=== PATIENT | female | born 1960 | race Caucasian/White ===

== ENCOUNTER 2017-02-21 05:33 | Day surgery (SDC) | payer BC ==
[2017-02-20 12:04] LABS: BASOPHILS 0.3 % (0-2); EOSINOPHILS 0.2 % (0-7); HEMATOCRIT 44.5 % (36.0-48.0); HEMOGLOBIN 14.9 g/dL (12-16); IMMATURE GRANULOCYTES 0.2 % (0-5); LYMPHOCYTES 16.7 % (15-50); MCH 31.2 pg (26.0-34.0); MCHC 33.5 g/dL (31.0-37.0); MCV 93.1 fL (80.0-100.0); MEAN PLATELET VOLUME 10.7 fL (7.4-10.4); NEUTROPHILS 75.6 % (40-80); PLATELET COUNT 235 10x3/uL (130-400); RBC 4.78 10x6/uL (4.00-5.40)
[2017-02-20 12:19] LABS: APTT 28.4 SECONDS (22.8-39.4); INR 0.96 (0.85-1.17); PROTIME 12.6 SECONDS (11.6-15.0)
[2017-02-20 12:23] LABS: CALC OSMOLALITY 275 mosm/kg (275-300); CALCIUM 9.7 mg/dL (8.5-10.1); CARBON DIOXIDE 27.8 mmol/L (21.0-32.0); CHLORIDE - SERUM 103 mmol/L (98-107); CREATININE - SERUM 0.8 mg/dL (0.6-1.3); GLUCOSE 97 mg/dL (74-106); POTASSIUM - SERUM 4.1 mmol/L (3.5-5.1); SODIUM 139 mmol/L (136-145); UREA NITROGEN 7 mg/dL (7-18); eGFR NON AFRICAN AMERICAN 79 mL/min (90-120)
[~2017-02-21] VITALS: Ht 162.6 cm; Wt 66.7 kg
[2017-02-21 07:03] VITALS: BP 108/63; Ht 162.6 cm; Wt 66.7 kg
[2017-02-21] MEDS ORDERED: HYDROCODONE-APA1 TAB PO (13:16)
--- NOTE | 2017-02-21 15:55 | NUR ---
BACK UP TO BATHROOM TO VOID. STATES IS READY FOR DISCHARGE. DISCHARGED HOME VIA WC.
--- NOTE | 2017-02-25 14:52 | OP ---
PATIENT NAME: LINCOLN SUAREZ MEDICAL RECORD: [id number] :64 LOCATION:D.OPS ADMISSION DATE: SURGEON: ARYAN PHILLIPS MD DATE OF OPERATION: 02/21/2017 PREOPERATIVE DIAGNOSIS: Malignant melanoma of the right lower extremity. POSTOPERATIVE DIAGNOSIS: Malignant melanoma of the right lower extremity. PROCEDURES: 1. Wide local excision of right lower extremity, malignant melanoma. 2. Right groin exploration. SURGEON: Aryan Phillips MD. REPORT OF OPERATION: The patient's right lower extremity and right groin were prepped and draped in sterile fashion. Preoperatively, the patient had lymphoscintigraphy performed. This only showed some accumulation of the radiotracer in what appeared to be the bladder, but it might have been in the deep inguinal lymph nodes. After the leg had been prepped and draped, we marked out the area on the right posterior medial knee where the 1.5-cm lesion was present, 2-cm margins were made in all directions and the total width of the transection was 5.5 cm. Longitudinally, we extended the incision to stop the closure from dog earring. The complete segment was taken down including the subcutaneous fatty tissue. This was marked appropriately and then sent off for permanent specimen. The subcutaneous tissues were undermined in all directions. We irrigated out the wound and stopped any bleeding using electrocautery. The subcutaneous tissues were reapproximated with interrupted 3-0 Vicryls and the skin was closed with vertical mattress 2-0 nylons. We then approached the right groin and using a Neoprobe, I did get some increased readings in the inguinal region. I went ahead and made a small incision in the inguinal crease and dissected down through the subcutaneous tissues and as expected, when I got down to the pelvic musculature, I was still registering high readings consistent with uptake in the deep inguinal nodes over the bladder. I went ahead and discontinued this portion of the surgery as there were no superficial lymph nodes, which were registering any radiotracer. We irrigated out the wound and then reapproximated the subcutaneous tissues with interrupted 3-0 Vicryls and the skin was closed with running subcutaneous 5-0 Monocryl. COMPLICATIONS: None. CONDITION: Stable. ANESTHESIA: General endotracheal and local. BLOOD LOSS: 50 mL. TRANSINT:[id number] Voice Confirmation ID: [id number] DOCUMENT ID: [id number] OPERATIVE REPORT [id number] LINCOLN SUAREZ CHRISTIAN MD at 1452 CC: MERVIN BARCLAY MD and NABOR MOORE MD [id number] DICTATION DATE: 02/21/17 1331 ANIMATION DIRECTOR: 02/21/17 1928 [facility] 02/21/17 [place] [id number] [place] [id number]
== END 2017-02-21 15:55 | disposition home or self-care (01) ==
LOC: D.OPS 05:33 → D.NM 07:30 → D.PAN 07:30 → D.OPS 07:30
PROVIDERS: Anesthesiology; Surgery
DX: C43.71 Malignant melanoma of right lower limb, including hip (principal); L98.8 Other specified disorders of the skin and subcutaneous tissue; L92.8 Other granulomatous disorders of the skin and subcutaneous tissue

== ENCOUNTER → 2018-01-20 20:33 | Outpatient (CLI) | payer BC ==
[2017-02-21 07:03] VITALS: BMI 25.3
[~2018-01-20 20:33] MED LIST: HYDROCODONE-APA1 TAB PO
== END | disposition home or self-care (01) ==
LOC: D.MAMMO 16:15
DX: Z12.31 Encounter for screening mammogram for malignant neoplasm of breast (principal)

== ENCOUNTER → 2019-03-31 06:58 | Outpatient (CLI) | payer BC ==
[2017-02-21 07:03] VITALS: BMI 25.3
== END | disposition home or self-care (01) ==
LOC: D.CT 06:58
PROVIDERS: ATTEND Internal Medicine Gastroenterology
DX: R93.89 Abnormal findings on diagnostic imaging of other specified body structures (principal)